=== PATIENT | female | born 1965 | race Hispanic/Latino ===

== ENCOUNTER 2021-02-14 08:59 | Outpatient (CLI) | payer BC | END 2021-02-14 09:00 | disposition home or self-care (01) | LOC: CSHMRI 08:59 | PROVIDERS: ATTEND Internal Medicine Gastroenterology | DX: K76.9 Liver disease, unspecified (principal) ==

== ENCOUNTER 2021-02-22 16:04 | Outpatient (CLI) | payer BC ==
[2021-02-23 02:31] LABS: SARS-CoV-2 PCR by NAA Not Detected (NotDetected)
== END 2021-02-22 16:05 | disposition home or self-care (01) ==
LOC: CSHLAB 16:04
PROVIDERS: ATTEND Internal Medicine Gastroenterology
DX: Z20.822 Contact with and (suspected) exposure to COVID-19 (principal); K76.9 Liver disease, unspecified; R94.5 Abnormal results of liver function studies; Z12.11 Encounter for screening for malignant neoplasm of colon
CPT/HCPCS: 87635; U0003; U0005